=== PATIENT | male | born 1945 | race Caucasian/White ===

== ENCOUNTER 2025-02-17 08:42 | Inpatient (IN) | payer MEDICARE, OTHER ==
[~2025-02-17] VITALS: Ht 180.3 cm; Wt 106.9 kg
--- NOTE | 2025-02-17 09:28 | ED.PDOC ---
Musculoskeletal HPI Comments A 79 YEAR OLD MALE PRESENTS TO THE ED WITH COMPLAINT OF RIGHT LOWER LEG SWELLING AND RIGHT FOOT SWELLING. PATIENT STATES HE FELL 2 WEEKS AGO AND HIT IN HIS RIGHT LOWER LEG AND HAS BEEN EXPERIENCING SWELLING TO HIS RIGHT LOWER LEG A RESULT. PATIENT REPORTS HE ALSO BEGAN TO EXPERIENCE SWELLING AND REDNESS IN HIS RIGHT FOOT 1 WEEK AGO. PATIENT DENIES FEVER, CHILLS, SHORTNESS OF BREATH, CHEST PAIN, ABDOMINAL PAIN, NAUSEA, VOMITING, HEADACHE, OR OTHER COMPLAINTS. NO OTHER SYMPTOMS OR MODIFYING FACTORS AT THIS TIME. PATIENT IS ALERT, ORIENTED X 4, AND HAS STEADY GAIT. Chief Complaint: Lower Extremity Time Seen by MD: 08:56 Primary Care Provider: SUSANNAH Reviewed Notes: Nurses Notes, Medications, Allergies Allergies: Coded Allergies: NO KNOWN ALLERGIES (Unverified , 02/17/25) Information Source: Patient Mode of Arrival: Ambulatory Location: Right Extremity Location: Foot, Leg (RIGHT LOWER LEG) Timing: Weeks Prehospital treatment: None Severity: Moderate Able to Move Extremity: Yes Bear Weight: Fully Pain: Moderate Mechanism: Blunt Trauma Circumstances: Fall Onset of Symptoms: After Trauma Symptoms: Swelling, Pain, Erythema DVT Risk Factors: NONE Last Tetanus: Unknown Associated signs and symptoms: Leg pain, Foot pain Past Medical History PAST MEDICAL HISTORY: DM Surgical History: Denies all surgeries Family History Family History: Reviewed,noncontributory to illness Social History Smoker: Non-Smoker Alcohol: Denies ETOH Use Drugs: Denies Drug Use Lives In: Home Constitutional: denies: chills, diaphoresis, fatigue, fever, malaise, sweats, weakness, others EENTM: denies: blurred vision, double vision, ear bleeding, ear discharge, ear drainage, ear pain, ear ringing, eye pain, eye redness, hearing loss, mouth pain, mouth swelling, nasal discharge, nose bleeding, nose congestion, nose pain, photophobia, tearing, throat pain, throat swelling, voice changes, others Respiratory: denies: cough, hemoptysis, orthopnea, SOB at rest, shortness of breath, SOB with excertion, stridor, wheezing, others Cardiovascular: denies: chest pain, dizzy spells, diaphoresis, Dyspnea on exertion, edema, irregular heart beat, left arm pain, lightheadedness, palpitations, PND, syncope, others Gastrointestinal: denies: abdomen distended, abdominal pain, blood streaked bowels, constipated, diarrhea, dysphagia, difficulty swallowing, hematemesis, melena, nausea, poor appetite, poor fluid intake, rectal bleeding, rectal pain, vomiting, others Genitourinary: denies: burning, dysuria, flank pain, frequency, hematuria, incontinence, penile discharge, penile sore, pain, testicle pain, testicle swelling, urgency, others Neurological: denies: dizziness, fainting, headache, left sided numbness, left sided weakness, numbness, paresthesia, pre-existing deficit, right sided numbness, right sided weakness, seizure, speech problems, tingling, tremors, weakness, others Musculoskeletal: reports: joint pain, joint swelling, others (RIGHT LOWER LEG PAIN AND SWELLING, RIGHT FOOT SWELLING); denies: back pain, gout, muscle pain, muscle stiffness, neck pain Integumetry: reports: bruises, lumps (RIGHT ANTERIOR LOWER LEG ); denies: change in color, change in hair/nails, dryness, laceration, lesions, rash, wounds, others Allergic/Immunocompromised: denies: Difficulty Healing, Frequent Infections, Hives, Itching, others Hematologic/Lymphatic: denies: anemia, blood clots, easy bleeding, easy bruising, swollen glands, others Endocrine: denies: excessive hunger, excessive sweating, excessive thirst, excessive urination, flushing, intolerance to cold, intolerance to heat, un explained weight gain, unexplained weight loss, others Psychiatric: denies: anxiety, bipolar disorder, depression, hopeless, panic disorder, schizophrenia, sleepless, suicidal, others All Other Systems: Reviewed and Negative Physical Exam General Appearance: No Apparent Distress, Normal HEENT: Normal ENT Inspection, PERRL/EOMI, Pharynx Normal, TMs Normal Neck: Full Range of Motion, Non-Tender, Normal, Normal Inspection Respiratory: Chest Non-Tender, Lungs Clear, No Accessory Muscle Use, No R espiratory Distress, Normal Breath Sounds Cardiovascular: No Edema, No JVD, No Murmur, No Gallop, Normal Peripheral Pulses, Regular Rate/Rhythm Breast Exam: Deferred Gastrointestinal: No Organomegaly, Non Tender, No Pulsatile Mass, Normal Bowel Sounds, Soft Genitalia: Deferred Pelvic: Deferred Rectal: Deferred Extremities: Decreased range of motion, Leg edema, No calf tenderness, Normal capillary refill, No pedal edema, Swelling (AND HEMATOMA ON RIGHT ANTERIOR LOWER LEG, NO BONY TENDERNESS AND DEFORMITY. ), Tender (AND REDNESS AND SWELLING ON RIGHT ANTERIOR FOOT, NO OPEN WOUND SEEN. ) Musculoskeletal : Apperance: Normal Neurologic: Alert, manager meat II-XII nml as Tested, No Motor Deficits, Normal Affect, Normal Mood, No Sensory Deficits Cerebellar Function: Normal Reflexes: Normal Skin: Bruises (WITH A LARGE HEMATOMA ON RIGHT ANTERIOR LEG, NO DVT SIGNS. ), Dry, Warm, Other (LOCALIZED REDNESS AND MILD SWELLING ON RIGHT DORSAL FOOT. ) Peripheral Pulses: 2+ carotid (R), 2+ carotid (L), 2+ dorsalis pedis (R), 2+ dorsalis pedis (L) Lymphatic: No Adenopathy Was a procedure done? Was a procedure done?: No Differential Diagnosis EXT Differential Diagnosis: Cellulitis, Deep Vein Thrombosis, Fracture, Sprain, DJD, Contusion, Strain, Arthritis, Bursitis X-Ray, Labs, Meds, VS Vital Signs Date Time Temp Pulse Resp B/P (MAP) Pulse Ox O2 Delivery O2 Flow Rate FiO2 02/17/25 12:58 70 15 122/71 (88) 94 02/17/25 12:47 66 18 95 Room Air* 0 21 02/17/25 09:20 84 18 97 Room Air 02/17/25 09:20 98.4 84 18 133/70 (91) 97 98.4 02/17/25 08:54 98.4 84 18 133/70 (91) 97 98.4 Lab Test 02/17/25 10:05 02/17/25 09:44 Range/Units White Blood Count 5.4 4.4-10.8 10^3/uL Red Blood Count 4.71 4.5-5.90 10^6/uL Hemoglobin 12.0 L 13.5-17.5 g/dL Hematocrit 35.9 L 41.0-53.0 % Mean Corpuscular Volume 76.3 L 80.0-100.0 fL Mean Corpuscular Hemoglobin 25.5 L 28.0-32.0 pg Mean Corpuscular Hemoglobin Concent 33.5 32.0-36.0 g/dL Red Cell Distribution Width 15.0 H 11.8-14.3 % Platelet Count 193 140-450 10^3/uL Mean Platelet Volume 7.6 6.9-10.8 fL Neutrophils (%) (Auto) 66.0 37.0-80.0 % Lymphocytes (%) (Auto) 18.7 10.0-50.0 % Monocytes (%) (Auto) 9.2 0.0-12.0 % Eosinophils (%) (Auto) 5.6 0.0-7.0 % Basophils (%) (Auto) 0.5 0.0-2.0 % Neutrophils # (Auto) 3.6 1.6-8.6 10 ^3/uL Lymphocytes # (Auto) 1.0 0.4-5.4 10 ^3/uL Monocytes # (Auto) 0.5 0-1.3 10 ^3/uL Eosinophils # (Auto) 0.3 0-0.8 10 ^3/uL Basophils # (Auto) 0 0-0.2 10 ^3/uL Nucleated Red Blood Cells 0.0 % Sodium Level 138 136-145 mmol/L Potassium Level 4.0 3.5-5.1 mmol/L Chloride Level 104 98-107 mmol/L Carbon Dioxide Level 28 20-31 mmol/L Anion Gap 6 5-15 Blood Urea Nitrogen 13 9-23 mg/dL Creatinine 0.95 0.700-1.30 mg/dL Glomerular Filtration Rate Calc 81 >90 mL/min BUN/Creatinine Ratio 13.7 10.0-20.0 Serum Glucose 124 H 74-106 mg/dL Lactic Acid Level 1.1 0.4-2.0 mmol/L Calcium Level 9.6 8.7-10.4 mg/dL Urine Color Yellow Yellow Urine Clarity Clear Clear Urine pH 6.0 5.0-9.0 Urine Specific [place] 1.018 1.001-1.035 Urine Protein Negative Negative Urine Ketones Negative Negative Urine Blood Negative Negative /uL Urine Nitrite Negative Negative Urine Bilirubin Negative Negative Urine Urobilinogen Normal Negative mg/dL Urine Leukocyte Esterase Negative Negative /uL Urine RBC 1 0 - 3 /hpf Urine Microscopic WBC < 1 0-3 /HPF Urine Squamous Epithelial Cells None seen <5 /hpf Urine Bacteria None seen None Seen /hpf Urine Mucus Few None Seen Urine Glucose Normal Normal mg/dL Bilateral lower extremity venous duplex Clinical History: RIGHT LOWER LEG SWELLING AND HEMATOMA Comparison: None Findings: Duplex Doppler evaluation of the deep venous systems of right lower extremity from the common femoral veins to the popliteal veins including color Doppler and spectral/pulsed waveform analysis was performed. RIGHT SIDE: The common femoral vein demonstrates appropriate compressibility and waveform variability. There is compressibility/patency of the great saphenous vein at the proximal t high. The femoral vein demonstrates appropriate compressibility and waveform variability. The deep femoral vein demonstrates appropriate compressibility and waveform variability. The popliteal vein demonstrates appropriate compressibility and waveform v ariability. There is normal compressibility at the tibioperoneal trunk. There is a complex collection in the lateral calf measuring 6.1 cm. Impression: 1. No deep venous thrombosis in the right extremity. 2. Right lateral calf complex fluid collection which may reflect hematoma. ATED BY: APARNA MCKEON MD DICTATED DATE/TIME: 02/17/25 1019 SIGNED BY: APARNA MCKEON MD SIGNED DATE/TIME: 02/17/25 1019 CC: CLINICAL INDICATION: REDNESS AND SWELLING TECHNIQUE: 3 radiographic views of the right foot were obtained. Comparison: None FINDINGS/IMPRESSION: There is no evidence of acute fracture or dislocation. Chronic deformity of the 1st metatarsal shaft. The visualized joint space is well maintained. Small plantar and posterior calcaneal enthesophyte. The alignment is anatomical. There is no radiopaque foreign body. ATED BY: BETY VILLANUEVA MD DICTATED DATE/TIME: 02/17/25 1030 SIGNED BY: BETY VILLANUEVA MD SIGNED DATE/TIME: 02/17/25 1030 CC: X-Ray, Labs, Meds, VS Comment EXTERNAL MEDICAL RECORDS REVIEWED: [NONE] INDEPENDENT HISTORIANS: [NONE] SOCIAL DETERMINANTS OF HEALTH: [NONE] LABS ORDERED: CBC, BNP, LACTIC ACID W/REFLEX, BLOOD CULTURE REVIEWED AND INTERPRETED RESULTS: IMAGING ORDERED: XR FOOT RT, CV VENOUS DOPPLER LOW EXT RT TREATMENTS ORDERED: ROCEPHIN 1G IV PROCEDURES PERFORMED: NONE CRITICAL CARE TIME: NONE I HAVE DISCUSSED THE PATIENT WITH THE ATTENDING PHYSICIAN DR. MACKEY AND HE AGREES WITH THE PATIENT'S PLAN OF CARE. UPON MY PHYSICAL EXAMINATION, THE PATIENT HAD A HEMATOMA NOTED TO HIS RIGHT LOWER LEG AND REDNESS WITH SWELLING NOTED TO HIS RIGHT FOOT CONSISTENT WITH CELLULITIS. DUE TO THE PATIENT'S HISTORY OF MULTIPLE SURGERIES IN HIS RIGHT FOOT, CELLULITIS OF HIS RIGHT FOOT, AND SINCE HE HAS A LARGE HEMATOMA ON HIS R IGHT LOWER LEG, I HAVE DETERMINED THE PATIENT NEEDS TO BE ADMITTED FOR FURTHER EVALUATION AND TREATMENT. THE ON-CALL HOSPITALIST WILL BE CONTACTED FOR ADMISSION OF THIS PATIENT. Images Reviewed?: Images reviewed and evaluated by me Time of 1ST Reevaluation: 13:00 Reevaluation 1ST: Unchanged Patient Education/Counseling: Diagnosis, Treatment Family Education/Counseling: Diagnosis, Treatment Departure 1 Departure Time of Disposition: 13:00 Impression: Primary Impression: Cellulitis of right foot Additional Impression: Hematoma of right lower leg Disposition: ADMITTED INPATIENT Condition: Serious Critical Care Note Critical Care Time?: No Stability Stability form required: No Unstable for transfer: Requires medication, ED Physician Assesment, Possible rapid decline I personally scribed for ROCÍO BELCHER ([email or web address]) on 02/17/25 at 09:28. Electronically submitted by Mirza Jean ([email or web address]). I personally scribed for ROCÍO BELCHER PA ([email or web address]) on 02/17/25 at 10:33. Electronically submitted by Mirza Jean ([email or web address]). I personally scribed for SHRADDHA BELCHERA PA ([email or web address]) on 02/17/25 at 10:35. Electronically submitted by Mirza Jean ([email or web address]). I personally scribed for SHRADDHA BELCHERA PA ([email or web address]) on 02/17/25 at 10:55. Electronically submitted by Mirza Jean ([email or web address]). I personally scribed for SHRADDHA BELCHERA PA ([email or web address]) on 02/17/25 at 11:37. Electronically submitted by Mirza Jean ([email or web address]). ROCÍO BELCHER PA February 17, 2025 09:28
[2025-02-17 09:46] LABS: Urine Bacteria None Seen /hpf (None Seen)
[2025-02-17 10:16] LABS: Urine Blood Negative /uL (Negative); Urine Clarity Clear (Clear); Urine Color Yellow (Yellow); Urine Mucus FEW (None Seen); Urine Protein, UAD Negative (Negative); Urine Specific Gravity 1.018 (1.001-1.035); Urine Squamous Epithelial Cell None Seen /hpf (<5); Urine Urobilinogen Normal (Negative); Urine WBC < 1 /HPF (0-3)
[2025-02-17 10:20] LABS: Basophils # (auto) 0 10 ^3/uL (0-0.2); Basophils % (auto) 0.5 % (0.0-2.0); Eosinophils # (auto) 0.3 10 ^3/uL (0-0.8); Lymphocytes % (auto) 18.7 % (10.0-50.0); Mean Corpuscular Hgb Conc. 33.5 g/dL (32.0-36.0); Monocytes # (auto) 0.5 10 ^3/uL (0-1.3); Neutrophils # (auto) 3.6 10 ^3/uL (1.6-8.6); White Blood Cell 5.4 10^3/uL (4.4-10.8)
[2025-02-17 10:21] LABS: Eosinophils % (auto) 5.6 % (0.0-7.0); Hematocrit 35.9 % (41.0-53.0); Mean Corpuscular Hemoglobin 25.5 pg (28.0-32.0); Mean Corpuscular Volume 76.3 fL (80.0-100.0); Monocytes % (auto) 9.2 % (0.0-12.0); Platelet Count (auto) 193 10^3/uL (140-450); Red Blood Cells 4.71 10^6/uL (4.5-5.90)
--- NOTE | 2025-02-17 10:21 | DVH ---
Bilateral lower extremity venous duplex Clinical History: RIGHT LOWER LEG SWELLING AND HEMATOMA Comparison: None Findings: Duplex Doppler evaluation of the deep venous systems of right lower extremity from the common femoral veins to the popliteal veins including color Doppler and spectral/pulsed waveform analysis was perfo rmed. RIGHT SIDE: The common femoral vein demonstrates appropriate compressibility and waveform variability. There is compressibility/patency of the great saphenous vein at the proximal thigh. The femoral vein demonstrates appropriate compressibility and waveform variability. The deep femoral vein demonstrates appropriate compressibility and waveform variability. The popliteal vein demonstrates appropriate compressibility and waveform variability. There is normal compressibility at the tibioperoneal trunk. There is a complex collection in the lateral calf measuring 6.1 cm. Impression: 1. No deep venous thrombosis in the right extremity. 2. Right lateral calf complex fluid collection which may reflect hematoma.
[2025-02-17 10:32] LABS: Chloride 104 mmol/L (98-107); Sodium 138 mmol/L (136-145)
[2025-02-17 10:33] LABS: Anion Gap 6 (5-15); Calcium 9.6 mg/dL (8.7-10.4); Carbon Dioxide 28 mmol/L (20-31)
--- NOTE | 2025-02-17 10:33 | DVH ---
CLINICAL INDICATION: REDNESS AND SWELLING TECHNIQUE: 3 radiographic views of the right foot were obtained. Comparison: None FINDINGS/IMPRESSION: There is no evidence of acute fracture or dislocation. Chronic deformity of the 1st metatarsal shaft. The visualized joint space is well maintained. Small plantar and posterior calcaneal enthesophyte. The alignment is anatomical. There is no radiopaque foreign body.
[2025-02-17 10:38] LABS: BUN/Creatinine Ratio 13.7 (10.0-20.0); Blood Urea Nitrogen 13 mg/dL (9-23)
[2025-02-17 10:42] LABS: Glucose 124 mg/dL (74-106)
[2025-02-17 12:47] VITALS: PULSE 66; RESP 18; O2SAT 95
[2025-02-17] MEDS: cefTRIAXone 1GM/50ML D5W 50 ML IV ONE (13:37)
[2025-02-17] MEDS ORDERED: DEXTROSE (50%) 50ML SYRG IV PRN (14:30)
[2025-02-17] MEDS ORDERED: ACETAMINOPHEN 325 MG TAB PO PRN (14:30)
[2025-02-17] MEDS ORDERED: MORPHINE SULFATE INJ 2 MG/ml SYRG IV PRN (14:30)
[2025-02-17] MEDS ORDERED: ONDANSETRON HCL 4 MG/2 ML VIAL IV PRN (14:30)
[2025-02-17] MEDS ORDERED: AZEL15GE TOP (14:35)
[2025-02-17] MEDS ORDERED: OMEP1CAP70 PO (14:35)
[2025-02-17] MEDS ORDERED: TAMS0.4C39 PO (14:35)
[2025-02-17] MEDS ORDERED: ROPI0.5T32 PO (14:35)
[2025-02-17] MEDS ORDERED: FURO20TA4 PO (14:35)
[2025-02-17] MEDS ORDERED: ATOR20TA50 PO (14:35)
[2025-02-17] MEDS ORDERED: HYDR200T36 PO (14:35)
--- NOTE | 2025-02-17 15:01 | DVHHP2 ---
History of Present Illness Reason for Visit: Right lower extremity pain status post fall History of Present Illness Ruiz Rosario is a 79-year-old male with past medical history of hypertension, hyperlipidemia, diabetes type 2, bilateral knee surgery, bilateral hips, and right foot surgery who presents to the ED with right lower extremity pain and swelling. Patient states that he fell on February 02 on his leg while walking. He also states that he is hard of hearing but no hearing aids noted. Patient denies any chest pain, shortness of breath, fever, chills, lightheadedness, weakness, dizziness, recent sick contacts, recent travels, abdominal pain, nausea, vomiting, or diarrhea. Patient does report that he is still able to ambulate without any DMEs. Cardiovascular: HTN, hyperipidemia Endocrine: Diabetes Past Surgical History: Other (Bilateral knee surgery, bilateral hip surgery, and right foot surgery) Family History: Other (Both ) Smoke: No ALCOHOL: occassional Drugs: None Lives: with Family Domestic Violence: Neg Review of Systems Musculoskeletal: leg pain Allergies: Coded Allergies: NO KNOWN ALLERGIES (Unverified , 02/17/25) Medications Current Medications Medications Dose Ordered Sig/Fina Route Start Time Stop Time Status Last Admin Dose Admin Acetaminophen/ Hydrocodone Bitart 1 tab Q4HP PRN PO 02/17/25 14:30 UNV Ondansetron HCl 4 mg Q4HP PRN IV 02/17/25 14:30 UNV Enoxaparin Sodium 40 mg DAILY SC 02/18/25 10:00 UNV Acetaminophen 650 mg Q6HP PRN PO 02/17/25 14:30 UNV Morphine Sulfate 2 mg Q4HPRN PRN IV 02/17/25 14:30 UNV Diagnostic Test (Pha) 1 strip ACHS 02/17/25 17:00 UNV Insulin Human Regular ACHS SC 02/17/25 17:00 UNV Dextrose 50 ml UD PRN IV 02/17/25 14:30 UNV Losartan Potassium 50 mg DAILY PO 02/18/25 10:00 UNV Hydrochlorothiazide 12.5 mg DAILY PO 02/18/25 10:00 UNV Atorvastatin Calcium 20 mg DAILY PO 02/18/25 10:00 UNV Furosemide 20 mg DAILY PO 02/18/25 10:00 UNV Hydroxychloroquine Sulfate 200 mg BID PO 02/17/25 22:00 UNV Tamsulosin HCl 1.4 mg DAILY PO 02/18/25 10:00 UNV Patient Own Medication 1 applic BID TOP 02/17/25 22:00 UNV Patient Own Medication 1 cap DAILY PO 02/18/25 10:00 UNV Exam Vital Signs Vital Signs Date Time Temp Pulse Resp B/P (MAP) Pulse Ox O2 Delivery O2 Flow Rate FiO2 02/17/25 12:58 70 15 122/71 (88) 94 02/17/25 12:47 Room Air* 0 21 02/17/25 09:20 98.4 98.4 General Appearance: Alert, Oriented X3, Cooperative, No acute distress HEENT: Atraumatic, PERRLA, EOMI, Mucous membr. moist/pink Respiratory: Clear to auscultation, Normal air movement Cardiovascular: Regular rate, Normal S1, Normal S2, No murmurs Abdominal: Normal bowel sounds, Soft Extremities: No clubbing, No cyanosis Neuro: Normal speech, Normal tone, Sensation intact Psych/Mental Status: Mental status NL, Mood NL Labs/Xrays Labs Test 02/17/25 10:05 02/17/25 09:44 Range/Units White Blood Count 5.4 4.4-10.8 10^3/uL Red Blood Count 4.71 4.5-5.90 10^6/uL Hemoglobin 12.0 L 13.5-17.5 g/dL Hematocrit 35.9 L 41.0-53.0 % Mean Corpuscular Volume 76.3 L 80.0-100.0 fL Mean Corpuscular Hemoglobin 25.5 L 28.0-32.0 pg Mean Corpuscular Hemoglobin Concent 33.5 32.0-36.0 g/dL Red Cell Distribution Width 15.0 H 11.8-14.3 % Platelet Count 193 140-450 10^3/uL Mean Platelet Volume 7.6 6.9-10.8 fL Neutrophils (%) (Auto) 66.0 37.0-80.0 % Lymphocytes (%) (Auto) 18.7 10.0-50.0 % Monocytes (%) (Auto) 9.2 0.0-12.0 % Eosinophils (%) (Auto) 5.6 0.0-7.0 % Basophils (%) (Auto) 0.5 0.0-2.0 % Neutrophils # (Auto) 3.6 1.6-8.6 10 ^3/uL Lymphocytes # (Auto) 1.0 0.4-5.4 10 ^3/uL Monocytes # (Auto) 0.5 0-1.3 10 ^3/uL Eosinophils # (Auto) 0.3 0-0.8 10 ^3/uL Basophils # (Auto) 0 0-0.2 10 ^3/uL Nucleated Red Blood Cells 0.0 % Sodium Level 138 136-145 mmol/L Potassium Level 4.0 3.5-5.1 mmol/L Chloride Level 104 98-107 mmol/L Carbon Dioxide Level 28 20-31 mmol/L Anion Gap 6 5-15 Blood Urea Nitrogen 13 9-23 mg/dL Creatinine 0.95 0.700-1.30 mg/dL Glomerular Filtration Rate Calc 81 >90 mL/min BUN/Creatinine Ratio 13.7 10.0-20.0 Serum Glucose 124 H 74-106 mg/dL Lactic Acid Level 1.1 0.4-2.0 mmol/L Calcium Level 9.6 8.7-10.4 mg/dL Urine Color Yellow Yellow Urine Clarity Clear Clear Urine pH 6.0 5.0-9.0 Urine Specific [place] 1.018 1.001-1.035 Urine Protein Negative Negative Urine Ketones Negative Negative Urine Blood Negative Negative /uL Urine Nitrite Negative Negative Urine Bilirubin Negative Negative Urine Urobilinogen Normal Negative mg/dL Urine Leukocyte Esterase Negative Negative /uL Urine RBC 1 0 - 3 /hpf Urine Microscopic WBC < 1 0-3 /HPF Urine Squamous Epithelial Cells None seen <5 /hpf Urine Bacteria None seen None Seen /hpf Urine Mucus Few None Seen Urine Glucose Normal Normal mg/dL CLINICAL INDICATION: REDNESS AND SWELLING TECHNIQUE: 3 radiographic views of the right foot were obtained. Comparison: None FINDINGS/IMPRESSION: There is no evidence of acute fracture or dislocation. Chronic deformity of the 1st metatarsal shaft. The visualized joint space is well maintained. Small plantar and posterior calcaneal enthesophyte. The alignment is anatomical. There is no radiopaque foreign body. Bilateral lower extremity venous duplex Clinical History: RIGHT LOWER LEG SWELLING AND HEMATOMA Comparison: None Findings: Duplex Doppler evaluation of the deep venous systems of right lower extremity from the common femoral veins to the popliteal veins including color Doppler and spectral/pulsed waveform analysis was performed. RIGHT SIDE: The common femoral vein demonstrates appropriate compressibility and waveform variability. There is compressibility/patency of the great saphenous vein at the proximal thigh. The femoral vein demonstrates appropriate compressibility and waveform variability. The deep femoral vein demonstrates appropriate compressibility and waveform variability. The popliteal vein demonstrates appropriate compressibility and waveform variability. There is normal compressibility at the tibioperoneal trunk. There is a complex collection in the lateral calf measuring 6.1 cm. Impression: 1. No deep venous thrombosis in the right extremity. 2. Right lateral calf complex fluid collection which may reflect hematoma. Assessment/Plan Assessment/Plan Assessment Right lower extremity pain likely hematoma Alcohol use Obesity History of hypertension History of hyperlipidemia History of diabetes type 2 History of bilateral knee surgery History of bilateral hip surgery History of right foot surgery Plan Admit to med surge Antiemetics Pain management UA X-ray of right foot Right lower venous ultrasound IV antibiotics given in ED Blood cultures Lactic level UA Hemoglobin A1c ISS and Accu-Cheks Diet Home medications reconciled DVT prophylaxis-Lovenox PUD prophylaxis-not indicated no history of GERD or GI bleed Discussed plan of care with patient and nurse Counseled patient on cessation of alcohol use Counseled patient on lifestyle modifications, diet, and exercise Plan discussed with: Patient My Orders Orders - DASHA PORTILLO [employer] Procedure Category Date Status Time Admit ADMIT 02/17/25 Transmitted 14:29 Allergies HAMMAD 02/17/25 In Process 14:29 Code Status CODE 02/17/25 Transmitted 14:29 Hydrocodone-Acet PHA 02/17/25 Logged 5/325mg Tab ([place] 14:30 Ondansetron Hcl PHA 02/17/25 Logged (Zofran) 14:30 Enoxaparin Sodium PHA 02/18/25 Logged (Lovenox) 10:00 Complete Blood Count LAB 02/18/25 Verified 04:00 Comprehensive LAB 02/18/25 Verified Metabolic Panel 04:00 Cardiac DIET 02/17/25 Transmitted Diet-2gna,Lofat,Lochol Dinner Acetaminophen Tablet PHA 02/17/25 Logged (Tylenol Tablet) 14:30 Morphine Sulfate PHA 02/17/25 Logged Injection 14:30 Glucose Blood PHA 02/17/25 Logged (Accu-Chek Comfort 17:00 Insulin R (Human) PHA 02/17/25 Logged (Insulin R) 17:00 Dextrose 50% Syringe PHA 02/17/25 Logged 14:30 Hemoglobin A1c LAB 02/17/25 In Process 14:29 Losartan Tablet PHA 02/18/25 Logged (Cozaar Tablet) 10:00 Hydrochlorothiazide PHA 02/18/25 Logged Tablet (Hydrochlorot 10:00 Atorvastatin (Lipitor) PHA 02/18/25 Transmitted 10:00 Furosemide Tablet PHA 02/18/25 Transmitted (Lasix Tablet) 10:00 Hydroxychloroquine PHA 02/17/25 Transmitted Tablet (Plaquenil Tab 22:00 Tamsulosin PHA 02/18/25 Transmitted Hydrochloride (Flomax) 10:00 (Nf) Azelaic Acid PHA 02/17/25 Transmitted 22:00 (Nf) Omeprazole PHA 02/18/25 Transmitted (Omeprazole Dr) 10:00 Date of Service: February 17, 2025 Billing Provider: DASHA PORTILLO Common Visit Codes: [id number] INP/OBS CARE (HIGH) DASHA PORTILLO February 17, 2025 15:00
[2025-02-17] MEDS: InsuLIN REG 1unit/0.01ml Soln (100units/ml) SC SCH (17:00)
[2025-02-17] MEDS: ACCU-CHEK COMFORT CURVE STRIP VI SCH (17:00)
[2025-02-17 17:08] VITALS: PULSE 78; RESP 94; O2SAT 94
[2025-02-17 17:20] VITALS: BP 119/75; PULSE 78; RESP 18; TEMP 98.4; O2SAT 94
[2025-02-17] MEDS ORDERED: TAMSULOSIN HYDROCHLORIDE 0.4 MG CAP PO SCH (18:00)
[2025-02-17 20:00] VITALS: PULSE 71; RESP 18; O2SAT 95
[2025-02-17] MEDS ORDERED: HYDR25TA5 PO (20:24)
[2025-02-17] MEDS ORDERED: TRAZ-227 PO (20:24)
[2025-02-17] MEDS ORDERED: METF-370 PO (20:24)
[2025-02-17] MEDS ORDERED: OMEP-434 PO (20:24)
[2025-02-17 21:00] VITALS: BP 135/69; PULSE 79; RESP 19; TEMP 97.8; O2SAT 91
[2025-02-17] MEDS: AZELAIC ACID 15% TOP SCH (22:00)
[2025-02-17] MEDS: hydrOXYchloroQUINE SULFATE 200 MG TAB PO SCH (22:43)
[2025-02-17] MEDS: ATORVASTATIN 20 MG TAB PO SCH (22:43)
[2025-02-18] VITALS (8 sets, daily range): BP systolic 112–153; BP diastolic 50–75; PULSE 53–68; RESP 16–20; TEMP 96.7–98.2; O2SAT 94–97
[2025-02-18 06:39] LABS: Basophils # (auto) 0 10 ^3/uL (0-0.2); Basophils % (auto) 0.5 % (0.0-2.0); Eosinophils # (auto) 0.3 10 ^3/uL (0-0.8); Lymphocytes # (auto) 0.9 10 ^3/uL (0.4-5.4); Mean Corpuscular Hemoglobin 25.7 pg (28.0-32.0); Monocytes # (auto) 0.4 10 ^3/uL (0-1.3); Neutrophils # (auto) 3.2 10 ^3/uL (1.6-8.6); Nucleated Red Blood Cells % 0.2 %
[2025-02-18 06:45] LABS: Eosinophils % (auto) 5.8 % (0.0-7.0); Hematocrit 36.8 % (41.0-53.0); Hemoglobin 12.4 g/dL (13.5-17.5); Lymphocytes % (auto) 19.1 % (10.0-50.0); Mean Corpuscular Hgb Conc. 33.6 g/dL (32.0-36.0); Mean Corpuscular Volume 76.6 fL (80.0-100.0); Monocytes % (auto) 9.1 % (0.0-12.0); Neutrophils % (auto) 65.5 % (37.0-80.0); Platelet Count (auto) 179 10^3/uL (140-450); Red Cell Distribution Width 15.1 % (11.8-14.3); White Blood Cell 4.9 10^3/uL (4.4-10.8)
[2025-02-18 07:00] LABS: Alanine Aminotransferase 21 U/L (7-40); Albumin 4.1 g/dL (3.2-4.8); Alkaline Phosphatase 96 U/L (46-116); Anion Gap 10 (5-15); Aspartate Aminotransferase 29 U/L (13-40); BUN/Creatinine Ratio 13.2 (10.0-20.0); Blood Urea Nitrogen 12 mg/dL (9-23); Calcium 10.1 mg/dL (8.7-10.4); Carbon Dioxide 25 mmol/L (20-31); Chloride 105 mmol/L (98-107); Glucose 100 mg/dL (74-106); Potassium 3.7 mmol/L (3.5-5.1); Sodium 140 mmol/L (136-145); Total Protein 6.6 g/dL (5.7-8.2)
[2025-02-18] MEDS: ENOXAPARIN SOD 40 MG/0.4 ML SYRINGE SC SCH (10:04)
[2025-02-18] MEDS: hydroCHLOROthiazide 25 MG TAB PO SCH (10:05)
[2025-02-18] MEDS: FUROSEMIDE 20 MG TAB PO SCH (10:06)
[2025-02-18] MEDS: LOSARTAN POTASSIUM 50 MG TAB PO SCH (10:06)
[2025-02-18] MEDS: PANTOPRAZOLE 40 MG TAB PO SCH (10:43)
[2025-02-18] MEDS: cefTRIAXone 2GM/50ML D5W 50 ML IV SCH (16:05)
--- NOTE | 2025-02-18 16:34 | DVHPN2 ---
Subjective in bed resting Changes from previous H/P or p: No Changes Musculoskeletal: leg pain Objective Vitals Vital Signs Date Time Temp Pulse Resp B/P (MAP) Pulse Ox O2 Delivery O2 Flow Rate FiO2 02/18/25 12:41 97.8 53 18 143/63 (89) 96 97.8 02/17/25 20:00 Room Air* 0 21 Intake/Output Intake and Output 02/18/25 07:00 Intake Total 1050 ml Balance 1050 ml Intake Oral 1000 ml IV Total 50 ml # Voids 7 General Appearance: Alert, Oriented X3 HEENT: Atraumatic Lungs: Clear to auscultation Cardiovascular: Regular rate, Normal S1, Normal S2 Skin: Other (right leg with swelling in mid bowling with possible hematoma) Medications Current Medications Medications Dose Ordered Sig/Fina Route Start Time Stop Time Status Last Admin Dose Admin Acetaminophen/ Hydrocodone Bitart 1 tab Q4HP PRN PO 02/17/25 14:30 Ondansetron HCl 4 mg Q4HP PRN IV 02/17/25 14:30 Enoxaparin Sodium 40 mg DAILY SC 02/18/25 10:00 02/18/25 10:04 40 MG Acetaminophen 650 mg Q6HP PRN PO 02/17/25 14:30 Morphine Sulfate 2 mg Q4HPRN PRN IV 02/17/25 14:30 Diagnostic Test (Pha) 1 strip ACHS 02/17/25 17:00 02/18/25 11:30 1 STRIP Insulin Human Regular ACHS SC 02/17/25 17:00 Dextrose 50 ml UD PRN IV 02/17/25 14:30 Losartan Potassium 50 mg DAILY PO 02/18/25 10:00 02/18/25 10:06 50 MG Hydrochlorothiazide 12.5 mg DAILY PO 02/18/25 10:00 02/18/25 10:05 12.5 MG Atorvastatin Calcium 20 mg HS PO 02/17/25 22:00 02/17/25 22:43 20 MG Furosemide 20 mg DAILY PO 02/18/25 10:00 02/18/25 10:06 20 MG Hydroxychloroquine Sulfate 200 mg BID PO 02/17/25 22:00 02/18/25 10:43 200 MG Tamsulosin HCl 1.4 mg QPM PO 02/17/25 18:00 Hold Patient Own Medication 1 applic BID TOP 02/17/25 22:00 Pantoprazole Sodium 40 mg DAILY PO 02/18/25 10:00 02/18/25 10:43 40 MG Ceftriaxone Sodium/Dextrose 50 ml @ 50 mls/hr DAILY IV 02/18/25 14:41 02/18/25 16:05 50 MLS/HR Laboratory Results Laboratory Tests 02/18/25 04:28 Chemistry Test 02/18/25 04:28 Albumin 4.1 g/dL (3.2-4.8) Calcium Level 10.1 mg/dL (8.7-10.4) Total Protein 6.6 g/dL (5.7-8.2) LFT Test 02/18/25 04:28 Alanine Aminotransferase (ALT) 21 U/L (7-40) Alkaline Phosphatase 96 U/L (46-116) Aspartate Amino Transferase (AST) 29 U/L (13-40) Total Bilirubin 1.0 mg/dL (0.2-1.0) Urinalysis Test 02/17/25 09:44 Urine Color Yellow (Yellow) Urine Clarity Clear (Clear) Urine pH 6.0 (5.0-9.0) Urine Specific [place] 1.018 (1.001-1.035) Urine Protein Negative (Negative) Urine Ketones Negative (Negative) Urine Blood Negative /uL (Negative) Urine Nitrite Negative (Negative) Urine Bilirubin Negative (Negative) Urine Urobilinogen Normal mg/dL (Negative) Urine Leukocyte Esterase Negative /uL (Negative) Urine RBC 1 /hpf (0 - 3) Urine Microscopic WBC < 1 /HPF (0-3) Urine Squamous Epithelial Cells None seen /hpf (<5) Urine Bacteria None seen /hpf (None Seen) Urine Mucus Few (None Seen) Urine Glucose Normal mg/dL (Normal) Microbiology Microbiology Date/Time Source Procedure Growth Status 02/17/25 10:05 Blood Blood Culture - Preliminary NO GROWTH AFTER 24 HOURS OF INCUBATION. Resulted Assessment/Plan Assessment/Plan Right lower extremity pain likely hematoma Alcohol use Obesity History of hypertension History of hyperlipidemia History of diabetes type 2 History of bilateral knee surgery History of bilateral hip surgery History of right foot surgery Start IV ceftriaxone Plan discussed with: Patient My Orders Orders - LILI LINK MD Procedure Category Date Status Time Ceftriaxone 2gm/50ml PHA 02/18/25 In Process D5w (Rocephin 2gm/5 14:41 Date of Service: February 18, 2025 Billing Provider: LILI LINK MD Common Visit Codes: [id number] INP/OBS CARE(HIGH) LILI LINK MD February 18, 2025 16:34
[2025-02-18] MEDS: HYDROcodone-ACET 5/325MG TAB PO PRN (21:01)
[2025-02-19 01:00] VITALS: BP 114/76; PULSE 66; RESP 18; TEMP 97.8; O2SAT 96
[2025-02-19 05:00] VITALS: BP 146/76; PULSE 61; RESP 18; TEMP 97.9; O2SAT 95
[2025-02-19 08:15] VITALS: BP 128/60; PULSE 54; RESP 18; TEMP 97.7; O2SAT 94
[2025-02-19 08:25] VITALS: PULSE 64; RESP 18; O2SAT 94
[2025-02-19] MEDS ORDERED: AUG875T PO (11:28)
[2025-02-19 12:49] VITALS: BP 128/60; PULSE 88; RESP 18; TEMP 36.5; O2SAT 95
[2025-02-19 12:51] VITALS: BP 140/68; PULSE 54; RESP 19; TEMP 98.2; O2SAT 96
--- NOTE | 2025-02-19 14:13 | DVHDS2 ---
Discharge Summary Date of Admission February 17, 2025 at 14:29 Date of Discharge: February 19, 2025 Labs/Diagnostic Data: Laboratory Results Test 02/19/25 05:15 02/18/25 04:28 02/17/25 10:05 02/17/25 09:44 POC Glucose 134 mg/dl (70-106) White Blood Count 4.9 10^3/uL (4.4-10.8) Red Blood Count 4.80 10^6/uL (4.5-5.90) Hemoglobin 12.4 g/dL (13.5-17.5) Hematocrit 36.8 % (41.0-53.0) Mean Corpuscular Volume 76.6 fL (80.0-100.0) Mean Corpuscular Hemoglobin 25.7 pg (28.0-32.0) Mean Corpuscular Hemoglobin Concent 33.6 g/dL (32.0-36.0) Red Cell Distribution Width 15.1 % (11.8-14.3) Platelet Count 179 10^3/uL (140-450) Mean Platelet Volume 8.0 fL (6.9-10.8) Neutrophils (%) (Auto) 65.5 % (37.0-80.0) Lymphocytes (%) (Auto) 19.1 % (10.0-50.0) Monocytes (%) (Auto) 9.1 % (0.0-12.0) Eosinophils (%) (Auto) 5.8 % (0.0-7.0) Basophils (%) (Auto) 0.5 % (0.0-2.0) Neutrophils # (Auto) 3.2 10 ^3/uL (1.6-8.6) Lymphocytes # (Auto) 0.9 10 ^3/uL (0.4-5.4) Monocytes # (Auto) 0.4 10 ^3/uL (0-1.3) Eosinophils # (Auto) 0.3 10 ^3/uL (0-0.8) Basophils # (Auto) 0 10 ^3/uL (0-0.2) Nucleated Red Blood Cells 0.2 % Sodium Level 140 mmol/L (136-145) Potassium Level 3.7 mmol/L (3.5-5.1) Chloride Level 105 mmol/L (98-107) Carbon Dioxide Level 25 mmol/L (20-31) Anion Gap 10 (5-15) Blood Urea Nitrogen 12 mg/dL (9-23) Creatinine 0.91 mg/dL (0.700-1.30) Glomerular Filtration Rate Calc 86 mL/min (>90) BUN/Creatinine Ratio 13.2 (10.0-20.0) Serum Glucose 100 mg/dL (74-106) Calcium Level 10.1 mg/dL (8.7-10.4) Total Bilirubin 1.0 mg/dL (0.2-1.0) Aspartate Amino Transferase (AST) 29 U/L (13-40) Alanine Aminotransferase (ALT) 21 U/L (7-40) Alkaline Phosphatase 96 U/L (46-116) Total Protein 6.6 g/dL (5.7-8.2) Albumin 4.1 g/dL (3.2-4.8) Hemoglobin A1c 6.2 % A1C (<5.7) Lactic Acid Level 1.1 mmol/L (0.4-2.0) Urine Color Yellow (Yellow) Urine Clarity Clear (Clear) Urine pH 6.0 (5.0-9.0) Urine Specific [place] 1.018 (1.001-1.035) Urine Protein Negative (Negative) Urine Ketones Negative (Negative) Urine Blood Negative /uL (Negative) Urine Nitrite Negative (Negative) Urine Bilirubin Negative (Negative) Urine Urobilinogen Normal mg/dL (Negative) Urine Leukocyte Esterase Negative /uL (Negative) Urine RBC 1 /hpf (0 - 3) Urine Microscopic WBC < 1 /HPF (0-3) Urine Squamous Epithelial Cells None seen /hpf (<5) Urine Bacteria None seen /hpf (None Seen) Urine Mucus Few (None Seen) Urine Glucose Normal mg/dL (Normal) Other Laboratory Tests 02/18/25 04:28 Brief Hx & Hospital Course: Ruiz Rosario is a 79-year-old male with past medical history of hypertension, hyperlipidemia, diabetes type 2, bilateral knee surgery, bilateral hips, and right foot surgery who presents to the ED with right lower extremity pain and swelling. Patient states that he fell on February 02 on his leg while walking. He also states that he is hard of hearing but no hearing aids noted. Patient denies any chest pain, shortness of breath, fever, chills, lightheadedness, weakness, dizziness, recent sick contacts, recent travels, abdominal pain, nausea, vomiting, or diarrhea. Patient does report that he is still able to ambulate without any DMEs. He did well and pain controlled discharged on oral abx for toe cellulitis Condition at Discharge: Good Final Diagnosis/Problems List Leg hematoma. Cellulitis of foot. Discharge Disposition: Home Discharge Instruct/Medications Diet: Regular Activity: No Restrictions, As Tolerated Follow Up/Referral: PCP in 7 days Medications: augmentin Discharge Statement: "Patient was advised to return to the ER or call 911 if any headaches, dizziness, shortness of breath, chest pain, abdominal pain, bleeding, fevers, or worsening of medical condition. Patient was counseled about treatment plan, medications, possible side effects, patientverbalized understanding. All questions were answered to the best of my ability. This discharge took greater then 30 minutes in planning, reviewing documentation, counseling the patient, and discussing with other team members." ASSESSMENT ASSESSMENT Assessment Leg hematoma. Cellulitis of foot. Date of Service: February 19, 2025 Billing Provider: LILI LINK MD Common Visit Codes: [id number]/[id number] DISCH DAY >30min LILI LINK MD February 19, 2025 14:13
== END 2025-02-19 13:27 | disposition home or self-care (01) | DRG 605 ==
LOC: ER 08:42 → OVERFLOW 14:29 → WEST WING 16:23
DX: S80.11XA Contusion of right lower leg, initial encounter (principal); L03.115 Cellulitis of right lower limb; E11.9 Type 2 diabetes mellitus without complications; E66.9 Obesity, unspecified; I10 Essential (primary) hypertension; F10.90 Alcohol use, unspecified, uncomplicated; Y90.9 Presence of alcohol in blood, level not specified; E78.5 Hyperlipidemia, unspecified; W18.39XA Other fall on same level, initial encounter; Y93.89 Activity, other specified; Y92.89 Other specified places as the place of occurrence of the external cause; Y99.8 Other external cause status; Z68.34 Body mass index [BMI] 34.0-34.9, adult
CPT/HCPCS: 36415; 73630; 80048; 80053; 81001; 82962; 83036; 83605; 85025; 87040; 93971; 96365; G0378; J1815